=== PATIENT | female | born 1960 | race African-American/Black ===

== ENCOUNTER 2020-09-27 07:39 | Day surgery (SDC) | payer OTHER ==
[2020-09-24 10:34] VITALS: BMI 16.9
[2020-09-27] MEDS ORDERED: LIDOCAINE HCL/PF 2% SDV 5ML VIAL ONE (08:42)
[2020-09-27] MEDS ORDERED: PROPOFOL 20 ML ONE ×4 (08:42)
[2020-09-27 10:07] VITALS: TEMP 97.6
[2020-09-27 10:34] VITALS: BP 121/72; PULSE 74
== END 2020-09-27 11:35 | disposition home or self-care (01) ==
LOC: FASU-ENDO 07:39
PROVIDERS: ATTEND Internal Medicine
PROC: 0DB48ZX Excision of Esophagogastric Junction, Via Natural or Artificial Opening Endoscopic, Diagnostic (ICD-10-PCS; 2020-09-27)
PROC: 0DB68ZX Excision of Stomach, Via Natural or Artificial Opening Endoscopic, Diagnostic (ICD-10-PCS; 2020-09-27)
PROC: 0DBL8ZX Excision of Transverse Colon, Via Natural or Artificial Opening Endoscopic, Diagnostic (ICD-10-PCS; principal; 2020-09-27 09:05)
DX: Z86.010 Personal history of colon polyps (principal); K64.1 Second degree hemorrhoids; K29.50 Unspecified chronic gastritis without bleeding; K21.9 Gastro-esophageal reflux disease without esophagitis; K31.7 Polyp of stomach and duodenum
CPT/HCPCS: 88305-TC; 88342-TC